=== PATIENT | female | born 1965 | race Caucasian/White ===

== ENCOUNTER → 2024-05-18 14:38 | Outpatient (BNVA) | payer MEDICARE, SELFPAY | PROVIDERS: Visit Provider Nurse Practitioner Adult Health | DX: G43.909 Migraine, unspecified, not intractable, without status migrainosus (principal); G44.40 Drug-induced headache, not elsewhere classified, not intractable | CPT/HCPCS: 99205; G2212 ==

== ENCOUNTER 2024-06-08 03:32 | Outpatient (RCR) | payer MEDICARE, SELFPAY ==
[2024-06-08] MEDS: EPTINEZUMAB-JJMR 300 MG in Normal Saline 100 ML 206 MG IVPB (10:06)
[2024-06-08] MEDS: Normal Saline Flush 5 ML SYR IVP (10:07)
== END 2024-06-23 23:59 | disposition home or self-care (01) ==
LOC: INF 03:32
PROVIDERS: Visit Provider Nurse Practitioner Adult Health
DX: G43.709 Chronic migraine without aura, not intractable, without status migrainosus (principal)
CPT/HCPCS: 96365; J3032

== ENCOUNTER 2024-08-03 15:30 | Outpatient (REF) | payer MEDICARE, SELFPAY ==
[2024-08-03 16:24] LABS: ALT 61 U/L (14-59); AST 31 U/L (15-37); Albumin 4.3 g/dL (3.4-5.0); Alkaline Phosphatase 110 U/L (46-116); BUN 20 mg/dL (7-18); Bilirubin, Total 0.5 mg/dL (0.2-1.0); Calcium 9.5 mg/dL (8.5-10.1); Calculated LDL 147 mg/dL (<100); Chloride 104 mmol/L (98-107); Cholesterol 218 mg/dL (<200); Estimated GFR 64.49 (mL/min/1.73m2); Glucose 97 mg/dL (74-106); HDL Cholesterol 40 mg/dL (>or=50); Potassium 4.6 mmol/L (3.5-5.1); Sodium 139 mmol/L (136-145); Total Protein 7.3 g/dL (6.4-8.2); Triglyceride 155 mg/dL (<150)
[2024-08-03 17:30] LABS: Hemoglobin A1C 5.5 % (<5.7)
[2024-08-04 09:52] LABS: Hepatitis C Ab w Rflx HCV PCR Negative (Negative)
== END 2024-08-03 15:31 | disposition home or self-care (01) ==
LOC: NCHCN 15:30
PROVIDERS: PCP Family Medicine; Visit Provider Family Medicine
DX: Z11.59 Encounter for screening for other viral diseases (principal); E66.9 Obesity, unspecified; R60.0 Localized edema
CPT/HCPCS: 80053; 80061; 86803; 83036

== ENCOUNTER 2024-09-08 02:30 | Outpatient (RCR) | payer MEDICARE, SELFPAY ==
[2024-09-08] MEDS: Normal Saline Flush 10 ML SYR IVP (10:32)
[2024-09-08] MEDS: EPTINEZUMAB-JJMR 300 MG in Normal Saline 100 ML 206 MG IVPB (10:32)
== END 2024-09-23 23:59 | disposition home or self-care (01) ==
LOC: INF 02:30
PROVIDERS: PCP Family Medicine; Visit Provider Nurse Practitioner Adult Health
DX: G43.709 Chronic migraine without aura, not intractable, without status migrainosus (principal)
CPT/HCPCS: 96365; J3032

== ENCOUNTER → 2024-09-13 10:49 | Outpatient (BNVA) | payer MEDICARE, SELFPAY | PROVIDERS: PCP Family Medicine; Visit Provider Nurse Practitioner Adult Health | DX: G43.909 Migraine, unspecified, not intractable, without status migrainosus (principal); G44.40 Drug-induced headache, not elsewhere classified, not intractable; Z72.0 Tobacco use | CPT/HCPCS: 99214 ==

== ENCOUNTER 2025-01-27 16:28 | Outpatient (REF) | payer MEDICARE, SELFPAY ==
--- NOTE | 2025-01-27 11:20 | PAPFT_PTH ---
PATIENT: Priti Caldwell LOC: [facility]#:[id number] AGE/SX: 59/F ROOM: RE01/27/[address]: Sofi Kirkland : 1965 BED: DIS: 01/27/2025 SPEC #: [id number] RECD: 01/27/25 18:20 STATUS: DEUCE JAIMES #: [id number] ANKIT: 01/27/25 11:[address]: Sofi Kirkland DEPT: [facility] Cytology RECD BY: Afshan Solano Tissues: 1 - CX/ENDOCX FOR PAP SMEARS Procedures: PAP THIN PREP/[facility] Screening HPV DNA PROBE Comments: [id number] (HPV 16 & 18/45)
== END 2025-01-27 16:29 | disposition home or self-care (01) ==
LOC: NCHCN 16:28
PROVIDERS: PCP Family Medicine; Visit Provider Family Medicine
DX: Z12.4 Encounter for screening for malignant neoplasm of cervix (principal)
CPT/HCPCS: 88142; 87624